=== PATIENT | female | born 1975 | race Caucasian/White ===

== ENCOUNTER 2016-08-26 19:06 | Emergency (ER) | payer SELFPAY ==
[2016-08-26 19:20] VITALS: BMI 28.3
[2016-08-26 19:33] VITALS: RESP 16; TEMP 98.2; O2SAT 99
[2016-08-26 19:39] LABS: ADD MANUAL DIFF? NO
[2016-08-26 19:44] LABS: BASO # 0.02 K/mm3 (0.0-2.0); BASO % 0.2 % (0.0-3.0); EOS # 0.2 (0.0-0.7); EOS % 1.5 % (1.5-5.0); GRAN # 5.64 (1.4-6.5); GRAN % 50.8 % (50.0-68.0); HEMATOCRIT 38.2 % (36.0-48.0); LYMPH # 4.8 (1.2-3.4); LYMPH % 43.5 % (22.0-35.0); MEAN CORPUSCULAR HEMOGLOBIN 30.2 pg (25.0-35.0); MEAN CORPUSCULAR HGB CONC 34.3 g/dl (31.0-37.0); MEAN PLATELET VOLUME 9.5 fl (7.0-11.0); MONO # 0.5 (0.1-0.6); PLATELET COUNT 390 10^3/uL (120.0-450.0); RED CELL DISTRIBUTION WIDTH 12.9 % (11.5-14.5); WHITE BLOOD COUNT 11.1 10^3/ul (4.5-11.0)
[2016-08-26 19:52] LABS: ALKALINE PHOSPHATASE 62 U/L (38-133); ALT/SGPT 15 U/L (7-56); AST/SGOT 31 U/L (15-39); BILIRUBIN,TOTAL 0.3 mg/dL (0.2-1.3); BLOOD UREA NITROGEN 22 mg/dL (7-21); CALCIUM 9.2 mg/dL (8.4-10.5); CARBON DIOXIDE 26 mmol/L (21-33); CHLORIDE 103 mmol/L (98-107); GFR AFRICAN-AMERICAN > 60; GLUCOSE,RANDOM 96 mg/dL (70-110); POTASSIUM 3.4 mmol/L (3.6-5.0); SODIUM 138 mmol/L (132-148); TOTAL PROTEIN 8.2 g/dL (5.8-8.3)
[2016-08-26 20:06] LABS: TROPONIN I < 0.01 ng/mL
--- NOTE | 2016-08-26 23:02 | ED PDOC ---
Arrival/HPI - General Chief Complaint: Chest Pain Time Seen by Provider: 08/26/16 19:13 Historian: Patient - History of Present Illness Narrative History of Present Illness (Text): 08/26/16 22:59 Yadira Brasdhaw is a 40 year old female who presents to the emergency department for evaluation of 3 day duration of chest pain associated with non-productive cough. Patient reports that pain is worsened with deep inspirations and movement. Denies fever, chills, headache, shortness of breath, abdominal pain, nausea, vomiting, diarrhea, urinary symptoms, or any other complaints at this time. Time/Duration: < week (3 days ) Symptom Onset: Gradual Symptom Course: Unchanged Severity Level: Mild Activities at Onset: Light Context: Home Past Medical History - Provider Review Nursing Documentation Reviewed: Yes - Past Medical History Past Medical History: No Previous - Psychiatric Hx Substance Use: No - Surgical History Hx Section: Yes (x3) - Anesthesia Hx Anesthesia: Yes Hx Anesthesia Reactions: No Hx Malignant Hyperthermia: No - Suicidal Assessment Feels Threatened In Home Enviroment: No Family/Social History - Physician Review Nursing Documentation Reviewed: Yes Family/Social History: No Known Family HX Smoking Status: Never Smoked Hx Alcohol Use: No Hx Substance Use: No Hx Substance Use Treatment: No Allergies/Home Meds Allergies/Adverse Reactions: Allergies No Known Allergies Allergy (Verified 09/17/14 17:23) Review of Systems - Physician Review All systems were reviewed & negative as marked: Yes - Review of Systems Constitutional: Normal. absent: Fatigue, Fevers Respiratory: Cough. absent: SOB Cardiovascular: Chest Pain Gastrointestinal: Normal. absent: Abdominal Pain, Diarrhea, Nausea, Vomiting Neurological: Normal. absent: Headache, Dizziness Psychiatric: Normal Physical Exam Vital Signs Reviewed: Yes Vital Signs Temp Pulse Resp BP Pulse Ox 08/26/16 23:50 78 16 137/78 99 08/26/16 19:06 98.2 F 89 16 143/89 99 Temperature: Afebrile Blood Pressure: Normal Pulse: Regular Respiratory Rate: Normal Appearance: Positive for: Well-Appearing, Non-Toxic, Comfortable Pain Distress: None Mental Status: Positive for: Alert and Oriented X 3 - Systems Exam Head: Present: Atraumatic, Normocephalic Pupils: Present: PERRL Extroacular Muscles: Present: EOMI Conjunctiva: Present: Normal Respiratory/Chest: Present: Clear to Auscultation, Good Air Exchange. No: Respiratory Distress, Accessory Muscle Use Cardiovascular: Present: Regular Rate and Rhythm, Normal S1, S2. No: Murmurs Abdomen: Present: Normal Bowel Sounds. No: Tenderness, Distention, Peritoneal Signs Upper Extremity: Present: Normal Inspection. No: Cyanosis, Edema Lower Extremity: Present: Normal Inspection. No: Edema Neurological: Present: GCS=15, CN II-XII Intact, Speech Normal Skin: Present: Warm, Dry, Normal Color. No: Rashes Psychiatric: Present: Alert, Oriented x 3, Normal Insight, Normal Concentration Medical Decision Making ED Course and Treatment: 08/26/16 23:03 Impression: A 40 year old female who presents to the emergency department complaining of 3 day duration of chest pain. Plan: -- EKG -- LAbs -- Chest X-ray -- Toradol -- HCG -- Urinalysis -- Reassess and disposition Progress Notes: 08/26/16 23:43 Reevaluation: On reevaluation the patient feels better and is in no acute distress. I have discussed the results and plan with the patient, who expresses understanding. Patient given the opportunity to ask question, all questions were answered and there is agreement with the plan to discharge the patient home. Patient is stable for discharge. Patient was instructed to follow up with physician/clinic in 1-2 days or return if symptoms persist/worsen or new concerning symptoms arise. Re-evaluation Time: 23:34 Reassessment Condition: Re-examined, Improved - Lab Interpretations Lab Results: 08/26/16 19:15 08/26/16 19:15 Lab Results 08/26/16 19:15: WBC 11.1 H D, RBC 4.34, Hgb 13.1, Hct 38.2, MCV 88.0, MCH 30.2, MCHC 34.3, RDW 12.9, Plt Count 390, MPV 9.5, Gran % 50.8, Lymph % (Auto) 43.5 H , [place] % (Auto) 4.0, Eos % (Auto) 1.5, Baso % (Auto) 0.2, Gran # 5.64, Lymph # 4.8 H, [place] # 0.5, Eos # 0.2, Baso # 0.02, Sodium 138, Potassium 3.4 L, Chloride 103, Carbon Dioxide 26, Anion Gap 12, BUN 22 H, Creatinine 0.6, Est GFR ( Amer) > 60, Est GFR (Non-Af Amer) > 60, Random Glucose 96, Calcium 9.2, Total Bilirubin 0.3, AST 31, ALT 15, Alkaline Phosphatase 62, Troponin I < 0.01, Total Protein 8.2, Albumin 4.2, Globulin 4.1, Albumin/Globulin Ratio 1.0 L I have reviewed the lab results: Yes - RAD Interpretation Radiology Orders: 08/26/16 20:45 CHEST TWO VIEWS (PA/LAT) [RAD] Stat - EKG Interpretation Interpreted by ED Physician: Yes Type: 12 lead EKG - Medication Orders Current Medication Orders: Discontinued Medications Ketorolac Tromethamine (Toradol) 30 mg IVP ONCE ONE Stop: 08/26/16 20:45 Last Admin: 08/26/16 22:20 Dose: 30 MG IVP Administration Document 08/26/16 22:20 EQ (Rec: 08/26/16 23:46 EQ [facility] [id number]) Charges for Administration # of IVP Administrations 1 - Scribe Statement The provider has reviewed the documentation as recorded by the Brandon Post Provider Attestation: All medical record entries made by the Kenanibtasneem were at my direction and personally dictated by me. I have reviewed the chart and agree that the record accurately reflects my personal performance of the history, physical exam, medical decision making, and the department course for this patient. I have also personally directed, reviewed, and agree with the discharge instructions and disposition. Disposition/Present on Arrival - Present on Arrival Any Indicators Present on Arrival: No History of DVT/PE: No History of Uncontrolled Diabetes: No Urinary Catheter: No History of Decub. Ulcer: No History Surgical Site Infection Following: None - Disposition Have Diagnosis and Disposition been Completed?: Yes Diagnosis: Costochondritis Disposition: HOME/ ROUTINE Disposition Time: 23:34 Discharge Instructions (ExitCare): Costochondritis (ED) Print Language: DIVEHI Prescriptions: Tramadol HCl [Ultram] 50 mg PO QID #8 tab Referrals: Iza Mckenna, [Primary Care Provider] - Follow up with primary
[2016-08-26 23:51] VITALS: BP 137/78; PULSE 78
--- NOTE | 2016-08-27 08:42 | RAD ---
HISTORY: cp COMPARISON: No prior. TECHNIQUE: Chest PA and lateral FINDINGS: LUNGS: No active pulmonary disease. PLEURA: No significant pleural effusion identified. No pneumothorax apparent. CARDIOVASCULAR: Normal. OSSEOUS STRUCTURES: No significant abnormalities. VISUALIZED UPPER ABDOMEN: Normal. OTHER FINDINGS: None. IMPRESSION: No active disease.
--- NOTE | 2016-08-27 18:51 | CARD ---
APPROVED REPORT EKG Measurement Heart [id number] <Conclusion> Normal sinus rhythm Normal ECG
== END 2016-08-26 23:50 | disposition home or self-care (01) ==
LOC: ED 19:06
DX: M94.0 Chondrocostal junction syndrome [Tietze] (principal)
CPT/HCPCS: 71020; 80053; 84484; 85025; 93005; 96374; 99283; J1885

== ENCOUNTER 2017-05-05 12:19 | Emergency (ER) | payer OTHER ==
[2017-05-05 12:20] VITALS: BMI 28.3
[2017-05-05 12:27] VITALS: BP 137/62; PULSE 75; RESP 19; TEMP 98.3; O2SAT 100
--- NOTE | 2017-05-05 12:43 | ED PDOC ---
Arrival/HPI - General Chief Complaint: Finger,Hand,&Wrist Time Seen by Provider: 05/05/17 12:25 Historian: Patient - History of Present Illness Narrative History of Present Illness (Text): 05/05/17 12:30 Yadira Bradshaw is a 41 year old female, who presents to the emergency department complaining of bilateral hand pain. Patient reports in January while at work, a machine fell on her hands causing a lump to develop on 2nd digit of left hand. Additionally, she feels pain in the upper palm of the right hand. Patient denies other complaints. Time/Duration: > month Symptom Onset: Gradual Symptom Course: Unchanged Activities at Onset: Light Context: Work Past Medical History - Provider Review Nursing Documentation Reviewed: Yes - Infectious Disease Hx of Infectious Diseases: None - Reproductive Currently : No - Past Medical History Past Medical History: No Previous - Psychiatric Hx Substance Use: No - Surgical History Hx Section: Yes (x3) - Anesthesia Hx Anesthesia: Yes Hx Anesthesia Reactions: No Hx Malignant Hyperthermia: No - Suicidal Assessment Feels Threatened In Home Enviroment: No Family/Social History - Physician Review Nursing Documentation Reviewed: Yes Family/Social History: Unknown Family HX Smoking Status: Never Smoked Hx Alcohol Use: No Hx Substance Use: No Hx Substance Use Treatment: No Allergies/Home Meds Allergies/Adverse Reactions: Allergies No Known Allergies Allergy (Verified 05/05/17 12:34) Review of Systems - Review of Systems Constitutional: absent: Fevers Eyes: absent: Vision Changes Respiratory: absent: SOB Cardiovascular: absent: Chest Pain Gastrointestinal: absent: Abdominal Pain Genitourinary Female: absent: Dysuria Musculoskeletal: Other (small lump on 2nd digit of left hand and pain on upper palm of right hand ) Neurological: absent: Headache Endocrine: absent: Polyuria Physical Exam Vital Signs Reviewed: Yes Vital Signs Temp Pulse Resp BP Pulse Ox 05/05/17 12:26 98.3 F 75 19 137/62 100 Temperature: Afebrile Blood Pressure: Normal Pulse: Regular Respiratory Rate: Normal Appearance: Positive for: Well-Appearing, Non-Toxic, Comfortable Pain Distress: None Mental Status: Positive for: Alert and Oriented X 3 - Systems Exam Head: Present: Atraumatic, Normocephalic Pupils: Present: PERRL Extroacular Muscles: Present: EOMI Conjunctiva: Present: Normal Upper Extremity: Present: Normal Inspection, Normal ROM, NORMAL PULSES, Tenderness (mild tenderness on upper palm of right hand ), Swelling (1cm small lump on 2nd digit of left hand ). No: Cyanosis, Edema Neurological: Present: GCS=15, CN II-XII Intact, Speech Normal Skin: Present: Warm, Dry, Normal Color. No: Rashes Psychiatric: Present: Alert, Oriented x 3, Normal Insight, Normal Concentration Medical Decision Making ED Course and Treatment: 05/05/17 17:55 xr neg for fracture, non specific swelling, debbie 2/2 previous trauma(pt reports swelling since injury in jan) vs herpetic elvis. advise outpt f/u and ortho for further managment. - RAD Interpretation Radiology Orders: 05/05/17 12:39 HAND 3 VIEWS BI [RAD] Stat Suit Maker: Radiologist - Medication Orders Current Medication Orders: Discontinued Medications Acetaminophen (Tylenol 325mg Tab) 975 mg PO STAT STA Stop: 05/05/17 12:41 Last Admin: 05/05/17 12:51 Dose: 975 mg - Scribe Statement The provider has reviewed the documentation as recorded by the Brandon Israel Provider Scribe Attestation: All medical record entries made by the Scribe were at my direction and personally dictated by me. I have reviewed the chart and agree that the record accurately reflects my personal performance of the history, physical exam, medical decision making, and the department course for this patient. I have also personally directed, reviewed, and agree with the discharge instructions and disposition. Disposition/Present on Arrival - Present on Arrival Any Indicators Present on Arrival: No History of DVT/PE: No History of Uncontrolled Diabetes: No Urinary Catheter: No History of Decub. Ulcer: No History Surgical Site Infection Following: None - Disposition Have Diagnosis and Disposition been Completed?: Yes Diagnosis: Hand pain Disposition: HOME/ ROUTINE Disposition Time: 12:30 Condition: STABLE Discharge Instructions (ExitCare): Hand Sprain (ED) Print Language: CHINESE Additional Instructions: please see specialist. return to emergency room with worsening symptoms or concerns. Referrals: [facility] [Outside] - Follow up with primary [facility] at [facility] [Outside] - Follow up with primary [employer] [Outside] - Follow up with primary [employer] Dar[facility] Mckenna, [Primary Care Provider] - Follow up with primary Mekhi Mcduffie DO [Staff Provider] - Follow up with primary Forms: [employer] (Lithuanian)
--- NOTE | 2017-05-05 13:33 | RAD ---
PROCEDURE: Bilateral hand radiographs. HISTORY: trauma COMPARISON: None. FINDINGS: BONES: Right Hand: Normal. No osteoarthritic changes. Left Hand: Normal. No osteoarthritic changes. JOINTS: Right Hand: Normal. Left Hand: Degenerative changes are seen in the 5th DIP joint SOFT TISSUES: Right Hand: Normal. Left Hand: Normal. OTHER FINDINGS: None. IMPRESSION: Left Hand: Degenerative changes are seen in the 5th DIP joint
== END 2017-05-05 13:40 | disposition home or self-care (01) ==
LOC: ED 12:19
DX: M79.642 Pain in left hand (principal); M79.641 Pain in right hand

== ENCOUNTER 2018-01-04 07:54 | Emergency (ER) | payer OTHER ==
[2018-01-04 08:10] VITALS: BMI 30.4
[2018-01-04 08:14] VITALS: O2SAT 98
[2018-01-04] MEDS ORDERED: Sodium Chloride 0.9% 1,000 ML IV STA (08:23)
--- NOTE | 2018-01-04 08:41 | ED PDOC ---
Arrival/HPI - General Chief Complaint: Abdominal Pain Time Seen by Provider: 01/04/18 08:12 Historian: Patient - History of Present Illness Narrative History of Present Illness (Text): 01/04/18 08:23 42 year old female, with no significant past medical history, presents to the Emergency department complaining of left sided abdominal discomfort radiating to her back since 2 days. Patient states noticing "little" blood in her urine today prompting her to present to the Emergency department for evaluation. Patient denies similar symptoms in the past. Patient denies any fever, chills, nausea, vomiting, diarrhea, chest pain, shortness of breath, cough, headache, dizziness, dysuria, urinary output changes, or any other complaints. Time/Duration: < week (2 days) Symptom Onset: Gradual Symptom Course: Unchanged Quality: Aching Activities at Onset: Light Context: Home Past Medical History - Provider Review Nursing Documentation Reviewed: Yes - Infectious Disease Hx of Infectious Diseases: None - Past Medical History Past Medical History: No Previous - Psychiatric Hx Substance Use: No - Surgical History Hx Section: Yes (x3) - Anesthesia Hx Anesthesia: Yes Hx Anesthesia Reactions: No Hx Malignant Hyperthermia: No - Suicidal Assessment Feels Threatened In Home Enviroment: No Family/Social History - Physician Review Nursing Documentation Reviewed: Yes Family/Social History: No Known Family HX Smoking Status: Never Smoked Hx Alcohol Use: No Hx Substance Use: No Hx Substance Use Treatment: No Allergies/Home Meds Allergies/Adverse Reactions: Allergies No Known Allergies Allergy (Verified 05/05/17 12:34) Review of Systems - Physician Review All systems were reviewed & negative as marked: Yes - Review of Systems Constitutional: absent: Fevers Respiratory: absent: SOB, Cough Cardiovascular: absent: Chest Pain Gastrointestinal: Abdominal Pain. absent: Diarrhea, Nausea, Vomiting, Hematochezia Genitourinary Female: Hematuria. absent: Dysuria, Vaginal Discharge Musculoskeletal: Back Pain. absent: Neck Pain Neurological: absent: Headache, Dizziness Physical Exam Vital Signs Reviewed: Yes Vital Signs Temp Pulse Resp BP Pulse Ox 01/04/18 14:04 98.3 F 70 18 120/68 98 01/04/18 13:55 98.3 F 70 18 120/69 98 01/04/18 07:55 99 F 72 16 131/67 98 Temperature: Afebrile Blood Pressure: Normal Pulse: Regular Respiratory Rate: Normal Appearance: Positive for: Well-Appearing, Non-Toxic, Comfortable Pain Distress: None Mental Status: Positive for: Alert and Oriented X 3 - Systems Exam Head: Present: Atraumatic, Normocephalic Pupils: Present: PERRL Extroacular Muscles: Present: EOMI Conjunctiva: Present: Normal Neck: Present: Normal Range of Motion Respiratory/Chest: Present: Clear to Auscultation, Good Air Exchange. No: Respiratory Distress, Accessory Muscle Use Cardiovascular: Present: Regular Rate and Rhythm, Normal S1, S2. No: Murmurs Abdomen: Present: Tenderness (left sided abdominal tenderness). No: Distention , Peritoneal Signs Back: Present: Normal Inspection. No: CVA Tenderness, Paraspinal Tenderness Upper Extremity: Present: Normal Inspection. No: Cyanosis, Edema Lower Extremity: Present: Normal Inspection. No: Edema Neurological: Present: GCS=15, CN II-XII Intact, Speech Normal Skin: Present: Warm, Dry, Normal Color. No: Rashes Psychiatric: Present: Alert, Oriented x 3, Normal Insight, Normal Concentration Medical Decision Making ED Course and Treatment: 01/04/18 08:23 Impression: 42 year old female presents to the Emergency department complaining of left sided abdominal pain radiating to her back. ro gastritis uti renal colic. oud Plan: -- CT of Abdomen/pelvis -- Labs -- IV fluids -- Tylenol -- Urinalysis -- Reassess and disposition Prior Visits: Notes and results from previous visits were reviewed. Progress Notes: 01/04/18 10:54 Upon reassessment, patient informs improved symptoms with no new complaints. 01/04/18 13:43 CT of Abdomen/Pelvis reviewed by radiologist, shows slight wall thickening of the urinary bladder likely due to incomplete distention however rule out cystitis. 01/04/18 14:31 s/p protonix, pain meds, pain complete resolved pt observed sleeping in nad. labs neg. ua minimal microscopic hematruia, pt notified of results request outpt fu. - Lab Interpretations Lab Results: 01/04/18 09:15 01/04/18 09:15 Lab Results 01/04/18 09:15: Sodium 142, Potassium 3.8, Chloride 103, Carbon Dioxide 27, Anion Gap 16, BUN 11, Creatinine 0.5 L, Est GFR ( Amer) > 60, Est GFR ( Non-Af Amer) > 60, Random Glucose 109, Calcium 9.2, Magnesium 2.0, Total Bilirubin 0.4, AST 42 H, ALT 39, Alkaline Phosphatase 68, Total Protein 7.6, Albumin 4.2, Globulin 3.4, Albumin/Globulin Ratio 1.2, Lipase 38 01/04/18 09:15: Urine Color Yellow, Urine Appearance Clear, Urine pH 6.0, Ur Specific [place] 1.025, Urine Protein 30 H, Urine Glucose (UA) Negative, Urine Ketones Negative, Urine Blood Large H, Urine Nitrate Negative, Urine Bilirubin Negative, Urine Urobilinogen 0.2, Ur Leukocyte Esterase Negative, Urine RBC 1 - 3, Urine WBC 2 - 5, Ur Epithelial Cells Many, Amorphous Sediment Moderate, Urine Bacteria Few 01/04/18 09:15: PT 11.0, INR 0.96, APTT 27.9 01/04/18 09:15: WBC 9.3, RBC 4.43, Hgb 13.2, Hct 38.6, MCV 87.1, MCH 29.8, MCHC 34.2, RDW 13.0, Plt Count 411, MPV 9.3, Gran % 56.1, Lymph % (Auto) 35.4 H, [place] % (Auto) 5.5, Eos % (Auto) 2.8, Baso % (Auto) 0.2, Gran # 5.19, Lymph # ( Auto) 3.3, [place] # (Auto) 0.5, Eos # (Auto) 0.3, Baso # (Auto) 0.02 - RAD Interpretation Radiology Orders: 01/04/18 09:35 ABD & PELVIS W/O PO OR IV CONT [CT] Stat Ladle Patcher: Radiologist - Medication Orders Current Medication Orders: Discontinued Medications Acetaminophen (Tylenol 325mg Tab) 975 mg PO STAT STA Stop: 01/04/18 08:24 Last Admin: 01/04/18 09:14 Dose: 975 mg MAR Pain/Vitals Document 01/04/18 09:14 SRE (Rec: 01/04/18 09:14 SRE [id number]) Pain Reassessment Is This A Pain ReAssessment? Yes Sodium Chloride (Sodium Chloride 0.9%) 1,000 mls @ 1,000 mls/hr IV .Q1H STA Stop: 01/04/18 09:22 Last Admin: 01/04/18 09:14 Dose: 1,000 mls/hr eMAR Start Stop Document 01/04/18 09:14 SRE (Rec: 01/04/18 09:14 SRE [id number]) Intravenous Solution Start Date 01/04/18 Start Time 09:14 End Date 01/04/18 End time 10:15 Total Infusion Time 61 Pantoprazole Sodium (Protonix Inj) 40 mg IVP STAT STA Stop: 01/04/18 08:26 Last Admin: 01/04/18 09:14 Dose: 40 mg IVP Administration Document 01/04/18 09:14 SRE (Rec: 01/04/18 09:14 SRE [id number]) Charges for Administration # of IVP Administrations 1 - Scribe Statement The provider has reviewed the documentation as recorded by the Scribe Aminah Chaparro. All medical record entries made by the Scribe were at my direction and personally dictated by me. I have reviewed the chart and agree that the record accurately reflects my personal performance of the history, physical exam, medical decision making, and the department course for this patient. I have also personally directed, reviewed, and agree with the discharge instructions and disposition. Disposition/Present on Arrival - Present on Arrival Any Indicators Present on Arrival: No History of DVT/PE: No History of Uncontrolled Diabetes: No Urinary Catheter: No History of Decub. Ulcer: No History Surgical Site Infection Following: None - Disposition Have Diagnosis and Disposition been Completed?: Yes Diagnosis: Abdominal pain Disposition: HOME/ ROUTINE Disposition Time: 02:00 Condition: STABLE Discharge Instructions (ExitCare): Acute Abdomen (Belly Pain), Adult (DC) Print Language: URDU Prescriptions: Famotidine [Pepcid] 20 mg PO DAILY #20 tab Referrals: [facility] [Outside] - Follow up with primary [facility] [Outside] - Follow up with primary [facility]NO [Primary Care Provider] - Follow up with primary Forms: [employer] ([place])
[2018-01-04 09:19] LABS: BASO # 0.02 K/mm3 (0.0-2.0); BASO % 0.2 % (0.0-3.0); EOS # 0.3 (0.0-0.7); EOS % 2.8 % (1.5-5.0); GRAN # 5.19 (1.4-6.5); GRAN % 56.1 % (50.0-68.0); HEMOGLOBIN 13.2 g/dL (12.0-16.0); LYMPH # 3.3 (1.2-3.4); LYMPH % 35.4 % (22.0-35.0); MEAN CELL VOLUME 87.1 fl (80.0-105.0); MEAN CORPUSCULAR HEMOGLOBIN 29.8 pg (25.0-35.0); MEAN CORPUSCULAR HGB CONC 34.2 g/dl (31.0-37.0); MEAN PLATELET VOLUME 9.3 fl (7.0-11.0); MONO # 0.5 (0.1-0.6); MONO % 5.5 % (1.0-6.0); RBC 4.43 10^6/uL (3.5-6.1); WHITE BLOOD COUNT 9.3 10^3/ul (4.5-11.0)
[2018-01-04 09:20] LABS: URINE APPEARANCE CLEAR (CLEAR); URINE BILIRUBIN NEGATIVE (NEGATIVE); URINE BLOOD LARGE (NEGATIVE); URINE COLOR YELLOW (YELLOW); URINE GLUCOSE (UA) NEGATIVE (NEGATIVE); URINE LEUKOCYTE ESTERASE NEGATIVE Leu/uL (NEGATIVE); URINE PROTEIN 30 mg/dL (<30 mg/dL); URINE UROBILINOGEN 0.2 E.U./dL (<1 E.U./dL)
[2018-01-04 09:28] LABS: ALB/GLOB RATIO 1.2 (1.1-1.8); ALBUMIN 4.2 g/dL (3.0-4.8); ALT/SGPT 39 U/L (7-56); AST/SGOT 42 U/L (14-36); BLOOD UREA NITROGEN 11 mg/dL (7-21); CALCIUM 9.2 mg/dL (8.4-10.5); GFR AFRICAN-AMERICAN > 60; GFR NON-AFRICAN AMERICAN > 60; LIPASE 38 U/L (23-300)
[2018-01-04 09:29] LABS: INR 0.96; PARTIAL THROMBOPLASTIN TIME 27.9 Seconds (25.1-36.5)
[2018-01-04 09:56] LABS: URINE BACTERIA FEW (NEG); URINE EPITHELIAL CELLS MANY /hpf (0-5)
[2018-01-04 09:57] LABS: URINE AMORPHOUS SEDIMENT MODERATE
--- NOTE | 2018-01-04 13:38 | CT ---
Date of service: 01/04/2018 PROCEDURE: CT Abdomen and Pelvis without intravenous contrast HISTORY: Left-sided flank pain. COMPARISON: Comparison made with CT scan abdomen pelvis 09/17/2014. TECHNIQUE: Contiguous helical/ transaxial sections of the abdomen pelvis performed without oral or intravenous contrast. Additional 2D sagittal and coronal reformats generated. Radiation dose: Total exam DLP = 709.11 mGy-cm. This CT exam was performed using one or more of the following dose reduction techniques: Automated exposure control, adjustment of the mA and/or kV according to patient size, and/or use of iterative reconstruction technique. FINDINGS: LOWER THORAX: Heart size within range of normal. No significant pericardial effusion. Tiny hiatal hernia. Lung bases clear. LIVER: Unremarkable. No gross lesion or ductal dilatation. GALLBLADDER AND BILE DUCTS: Unremarkable. PANCREAS: Unremarkable. No gross lesion or ductal dilatation. SPLEEN: Unremarkable. ADRENALS: Unremarkable. No mass. KIDNEYS AND URETERS: Unremarkable. No hydronephrosis. No solid mass. VASCULATURE: Unremarkable. No aortic aneurysm. BOWEL: Unremarkable. No obstruction. No gross mural thickening. APPENDIX: Normal-appearing appendix. PERITONEUM: Unremarkable. No free fluid. No free air. Small fat containing umbilical hernia. LYMPH NODES: Unremarkable. No enlarged lymph nodes. BLADDER: Urinary bladder incompletely distended which presumably accounts slight thick-walled appearance. Rule out cystitis REPRODUCTIVE: Unremarkable. BONES: Minor multilevel degenerative spondylosis of the lower thoracic spine. OTHER FINDINGS: None. IMPRESSION: Slight wall thickening of the urinary bladder likely due to incomplete distention however rule out cystitis.
[2018-01-04 14:00] VITALS: PULSE 70
[2018-01-04 14:05] VITALS: BP 120/68
[2018-01-04 14:07] VITALS: RESP 18; TEMP 98.3
== END 2018-01-04 14:04 | disposition home or self-care (01) ==
LOC: ED 07:54
DX: R10.9 Unspecified abdominal pain (principal)
CPT/HCPCS: 74176; 80053; 81001; 83690; 83735; 85025; 85610; 85730; 96361; 96374; 99282; C9113; J7030